=== PATIENT | female | born 1985 | race Native Hawaiian/Other Pacific Islander ===

== ENCOUNTER 2019-11-19 09:58 | Emergency (ER) | payer OTHER ==
[~2019-11-19] VITALS: Ht 157.5 cm; Wt 65.8 kg
[2019-11-19 11:11] LABS: PLATELET COUNT 207 K/uL (152-353)
[2019-11-19 11:19] LABS: POTASSIUM 3.3 mmol/L (3.6-5.2)
[2019-11-19 12:40] VITALS: BP 119/71; TEMP 98
== END 2019-11-19 12:40 | disposition home or self-care (01) ==
LOC: ED 09:58
PROVIDERS: Emergency Medicine
DX: N83.202 Unspecified ovarian cyst, left side (principal); N83.201 Unspecified ovarian cyst, right side
CPT/HCPCS: 80053; 81000; 85027; 99283